=== PATIENT | female | born 1995 | race Caucasian/White ===

== ENCOUNTER 2016-10-18 20:46 | Inpatient (IN) | payer OTHER ==
[2016-10-18] MEDS ORDERED: HYDROmorphone 1 MG/ML 1 ML SYRINGE IVP STA (21:08)
--- NOTE | 2016-10-18 21:43 | US ---
EXAMINATION TYPE: US transvaginal DATE OF EXAM: 10/18/2016 9:29 PM COMPARISON: NONE CLINICAL HISTORY: Pain. Vomiting, constipation, bloating, right pelvic pain TECHNIQUE: Transvaginal (TV) Date of LMP: 09/28/16 EXAM MEASUREMENTS: Uterus: 6.9 x 3.3 x 4.3 cm Endometrial Stripe: 1.1 cm Right Ovary: 3.2 x 1.6 x 1.8 cm Left Ovary: 3.1 x 1.9 x 2.4 cm 1. Uterus: Anteverted appears wnl 2. Endometrium: wnl 3. Right Ovary: follicles noted 4. Left Ovary: follicles noted Spectral, color and waveform doppler imaging shows good arterial and venous flow within the ovaries ; there is no evidence for ovarian torsion. 5. Bilateral Adnexa: small amount of free fluid adjacent to bilateral ovaries 6. Posterior cul-de-sac: small amount of free fluid IMPRESSION: Ovarian torsion is not evident. Follow-up as indicated.
--- NOTE | 2016-10-18 21:53 | ED ---
Abdominal Pain HPI <Mahendra Mackenzie - Last Filed: 10/18/16 22:39> - General Source: patient, EMS, RN notes reviewed, old records reviewed Mode of arrival: EMS Limitations: no limitations <Rossy Shabazz - Last Filed: 10/19/16 04:33> - General Chief Complaint: Abdominal Pain Stated Complaint: Lower Abd Pain Time Seen by Provider: 10/18/16 20:55 - History of Present Illness Initial Comments: This is a 21-year-old female presenting to the emergency department from the [facility] for evaluation of right lower quadrant and flank pain. Patient presented to the [facility] in stable states she had this right lower quadrant tenderness with guarding and patient was thrashing around. Patient's labs were consistent with leukocytosis. She did receive a CAT scan there which is negative for appendicitis but did indicate a large to hepatic duct. Patient' s laboratory showed normal liver enzymes. Patient states that she still had pain after receiving multiple doses of morphine and Dilaudid and Toradol. Patient states that she's had these pains every once in a while but they've never been this bad. Patient initial emergency room physician did contacted the surgeon Dr. Negrete. He stated there is nothing surgically evident this point they want her to be transferred to [facility] for transvaginal ultrasound. Patient states that she did have some vaginal discharge. They did do swabs for gonorrhea and Chlamydia and patient had no cervical motion tenderness. Patient denies any fever or chills. She does state that she has vomited multiple times as well today. (Rossy Shabazz) - Related Data Home Medications Medication Instructions Recorded Confirmed No Known Home Medications [No 10/18/16 10/19/16 Known Home Medications] Allergies Allergy/AdvReac Type Severity Reaction Status Date / Time [facility]aclor [[facility] Allergy Anaphylaxis Verified 10/19/16 01:05 Review of Systems ROS Other: All systems not noted in ROS Statement are negative. <Mahendra Mackenzie - Last Filed: 10/18/16 22:39> ROS Other: All systems not noted in ROS Statement are negative. <Rossy Shabazz - Last Filed: 10/19/16 04:33> ROS Statement: Those systems with pertinent positive or pertinent negative responses have been documented in the HPI. Past Medical History Past Medical History: No Reported History History of Any Multi-Drug Resistant Organisms: None Reported Past Surgical History: No Surgical Hx Reported Past Psychological History: No Psychological Hx Reported Smoking Status: Current some day smoker Past Alcohol Use History: None Reported Past Drug Use History: None Reported - Past Family History Mother Family Medical History: No Reported History <Rossy Shabazz - Last Filed: 10/19/16 04:33> General Exam <Mahendra Mackenzie - Last Filed: 10/18/16 22:39> Limitations: no limitations General appearance: alert, in no apparent distress Head exam: Present: atraumatic, normocephalic, normal inspection Eye exam: Present: normal appearance, PERRL, EOMI. Absent: scleral icterus, conjunctival injection, periorbital swelling ENT exam: Present: normal exam, mucous membranes moist Neck exam: Present: normal inspection. Absent: tenderness, meningismus, lymphadenopathy Respiratory exam: Present: normal lung sounds bilaterally. Absent: respiratory distress, wheezes, rales, rhonchi, stridor Cardiovascular Exam: Present: regular rate, normal rhythm, normal heart sounds. Absent: systolic murmur, diastolic murmur, rubs, gallop, clicks GI/Abdominal exam: Present: soft, tenderness (Right lower quadrant tenderness and rigidity.), normal bowel sounds. Absent: distended, guarding, rebound, rigid External exam: Present: normal external exam Speculum exam: Present: normal speculum exam, vaginal discharge (slight vaginal discharge, cultures obtained. ). Absent: erythema, cervical discharge, vaginal bleeding, foreign body, tissue By manual exam: Present: normal by manual exam. Absent: cervical motion tenderness, adnexal tenderness Extremities exam: Present: normal inspection, full ROM, normal capillary refill. Absent: tenderness, pedal edema, joint swelling, calf tenderness Back exam: Present: normal inspection Neurological exam: Present: alert, oriented X3, CN II-XII intact Psychiatric exam: Present: normal affect, normal mood Skin exam: Present: warm, dry, intact, normal color. Absent: rash <Rossy Shabazz - Last Filed: 10/19/16 04:33> - General Exam Comments Initial Comments: Pleasant 21-year-old female, she is thrashing around in the bed. (Rossy Shabazz) Medical Decision Making <Mahendra Mackenzie - Last Filed: 10/18/16 22:39> - Radiology Data Radiology results: report reviewed <Rossy Shabazz - Last Filed: 10/19/16 04:33> - Medical Decision Making Medical decision-making. This is a 21-year-old female was sent to our emergency room from [facility] emergency room at that facility she had a CAT scan because of chronic recurrent lower abdominal pain. The CAT scan at that time was reported to us to showed no acute appendicitis. Dilaudid did indicate a possible enlarged hepatic duct both normal liver enzymes. The patient was still having pain at receiving pain medication she was sent here for evaluation by ultrasound rule out torsion of the ovary and this was reported to be negative by our radiologist. The patient reports she's had pain in the right lower quadrant for over a year on again off again. She's had vaginal examination without being positive for sexual transmitted diseases. Examination today in the emergency room finds the patient pushes hard enough to cause bruising over McBurney's point. The patient has discomfort with deep palpation to this area regardless whether she is relaxed laying flat or sitting up. Due to the mildly elevated white count of 14.5 and persistence of discomfort the patient be admitted for observation for the evening with surgical consultation by Dr. Qi gardner with whom I discussed the case. Dr. Mackenzie (Mahendra Mackenzie) Patient is a 21-year-old female transferred from [facility] for evaluation to rule out ovarian torsion. She has had right lower quadrant abdominal pain for the past is very severe. Patient's lab work was reviewed. Her urine analysis was negative for any acute process. Sodium is 134, potassium 4.0. Chloride 100. CO2 26. BUN 10 creatinine 0.7. Patient's AST is 25. ALT is 1235. Alk phos 74. Patient's white count was 14.86. 10.4 neutrophils. Hemoglobin 16.3. Patient was transferred here and did receive 2 of Dilaudid and morphine and 30 of Toradol and still has pain. Patient is transvaginal ultrasound was completed in the emergency department. It was negative for ovarian torsion. This case with Dr. Saha. Patient will be admitted at this time with consultation to Dr. Abelardo Mccray. Given patient's elevated white count and a felt necessary started around IV antibiotic. We started on Levaquin. Patient is agreeing with admission. (Rossy Shabazz) - Radiology Data Transvaginal ultrasound is negative for ovarian torsion. (Rossy Shabazz) Disposition <Mahendra Mackenzie - Last Filed: 10/18/16 22:39> Time of Disposition: 23:12 <Rossy Shabazz - Last Filed: 10/19/16 04:33> Clinical Impression: RLQ abdominal pain Disposition: ADMITTED IP TO THIS HOSP Condition: Good
[2016-10-18] MEDS ORDERED: NALOXONE 0.4 MG/ML 1 ML VIAL IV PRN (23:03)
[2016-10-18] MEDS ORDERED: ACETAMINOPHEN TAB 325 MG TAB PO PRN (23:03)
[2016-10-18] MEDS: SODIUM CHLORIDE 0.9% 1,000 ML IV SCH (23:40)
[2016-10-18] MEDS: LEVOFLOXACIN 750MG-D5W PMX 750 MG in DEXTROSE/WATER 1 150ML.BAG IVPB SCH (23:41)
[2016-10-19 01:04] VITALS: BMI 24.7
[2016-10-19] MEDS: HYDROmorphone 1 MG/ML 1 ML SYRINGE IV PRN ×7 (01:20→20:35)
[2016-10-19] MEDS: KETOROLAC 30 MG/ML 1 ML VIAL IVP PRN ×4 (01:21→20:36)
[2016-10-19 07:11] LABS: Basophils # (A) 0.1 k/uL (0-0.2); Basophils % (A) 1 %; CHCM 33.3; Eosinophils # (A) 0.1 k/uL (0-0.7); Eosinophils % (A) 2 %; HCT 40.7 % (34.0-46.0); HDW 2.18; HGB 13.7 gm/dL (11.4-16.0); Luc # (Auto) 0.14; Luc % (Auto) 2; Lymphocytes % (A) 24 %; MCH 32.5 pg (25.0-35.0); MCHC 33.7 g/dL (31.0-37.0); MCV 96.5 fL (80.0-100.0); Mean Platelet Volume 6.7; Monocytes # (A) 0.5 k/uL (0-1.0); Monocytes % (A) 6 %; Neutrophils # (A) 5.4 k/uL (1.3-7.7); Neutrophils % (A) 66 %; RBC 4.22 m/uL (3.80-5.40); RDW 12.9 % (11.5-15.5); WBC 8.1 k/uL (3.8-10.6); WBC (Perox) 8.38
[2016-10-19 07:33] LABS: ALT 23 U/L (9-52); AST 20 U/L (14-36); Alkaline Phosphatase 43 U/L (38-126); Anion Gap 5 mmol/L; Blood Urea Nitrogen 9 mg/dL (7-17); Carbon Dioxide 26 mmol/L (22-30); Chloride 106 mmol/L (98-107); Glucose 86 mg/dL (74-99); Non-African American GFR(MDRD) >60 (>60 ml/min/1.73 sqM); Potassium 4.6 mmol/L (3.5-5.1); Sodium 137 mmol/L (137-145); Total Bilirubin 1.1 mg/dL (0.2-1.3); Total Protein 5.9 g/dL (6.3-8.2)
[2016-10-19] MEDS: ONDANSETRON 4 MG/2 ML VIAL IVP PRN (08:22)
[2016-10-19] MEDS: SODIUM CHLORIDE 0.9% 1,000 ML IV SCH ×2 (09:22→17:04)
[2016-10-19] MEDS ORDERED: NICOTINE 14MG/24HR PATCH TRANSDERM STA (09:47)
[2016-10-19] MEDS: PANTOPRAZOLE 40 MG/10 ML VIAL IV SCH (10:12)
--- NOTE | 2016-10-19 12:10 | P.GSHP ---
History of Present Illness H&P Date: 10/19/16 patient is a 21-year-old white female who presented to an outside emergency room with a complaint of pain which became progressively worse in the right lower quadrant. The patient has had multiple episodes of abdominal pain of similar nature over the past several years. The pain appears to be associated with nausea and vomiting. The patient states that at this time she did have some fever and chills. the patient's last menstrual period was approximately 3 weeks ago.The patient underwent a CAT scan at [facility] which was reviewed with radiology department here. The appendix appears to be seen without any evidence of any inflammation. patient's white blood cell count was 8.1. There is some question as to some abnormality associated with the right ovary. She was transferred with request from the prior hospital for the patient to undergo transvaginal ultrasound. The patient did report some vaginal discharge. They did do swabs for gonorrhea and chlamydia and did not report any cervical motion tenderness. The patient states she is very uncomfortable at this time and is thrashing around on the bed. Additionally the patient states that in the past when she has had pain like this is difficult to walk and she states that it is more painful when she gets up and moves around. the patient is passing flatus and had a bowel movement yesterday. The patient is not hungry at this time and has not eaten since yesterday. The patient states that after examination at the outside facility she developed ecchymosis in the right lower quadrant. - Constitutional Comment: recurrent episodes of abdominal pain over the past several years Recurrent episodes of nausea - Cardiovascular Cardiovascular: Reports as per HPI - Gastrointestinal Gastrointestinal: Reports as per HPI - Genitourinary (Female) Comment: patient smokes a half a pack per day Genitourinary: Reports as per HPI - Genitourinary (Male) Genitourinary: Reports as per HPI - Integumentary Integumentary: Reports as per HPI Past Medical History Past Medical History: No Reported History History of Any Multi-Drug Resistant Organisms: None Reported Past Surgical History: No Surgical Hx Reported Past Anesthesia/Blood Transfusion Reactions: No Reported Reaction Past Psychological History: No Psychological Hx Reported Smoking Status: Current some day smoker Past Alcohol Use History: None Reported Past Drug Use History: None Reported - Past Family History Mother Family Medical History: No Reported History Medications and Allergies Home Medications Medication Instructions Recorded Confirmed Type No Known Home Medications [No 10/18/16 10/19/16 History Known Home Medications] Allergies Allergy/AdvReac Type Severity Reaction Status Date / Time cefaclor [From [facility]] Allergy Anaphylaxis Verified 10/19/16 01:05 Surgical - Exam Vital Signs Temp Pulse Resp BP Pulse Ox 99.0 F 80 16 98/62 99 10/18/16 20:54 10/18/16 20:54 10/18/16 20:54 10/18/16 20:54 10/18/16 20:54 - General well developed, moderate distress - Neck trachea midline, no venous distension - Respiratory normal expansion, normal respiratory effort, clear to auscultation - Cardiovascular Rhythm: regular Heart Sounds: normal: S1, S2 - Abdomen voluntary guarding, abdomen appears soft with patient is distracted echymosis over the right lower quadrant positive bowel sounds Results - Labs 10/19/16 06:41 10/19/16 06:41 Abnormal Lab Results - Last 24 Hours (Table) 10/19/16 Range/Units 06:41 Total Protein 5.9 L (6.3-8.2) g/dL Microbiology - Last 24 Hours (Table) 10/19/16 01:15 Genital Culture - Preliminary Vaginal Diabetes panel 10/19/16 Range/Units 06:41 Sodium 137 (137-145) mmol/L Potassium 4.6 (3.5-5.1) mmol/L Chloride 106 (98-107) mmol/L Carbon Dioxide 26 (22-30) mmol/L BUN 9 (7-17) mg/dL Creatinine 0.76 (0.52-1.04) mg/dL Glucose 86 (74-99) mg/dL Calcium 9.0 (8.4-10.2) mg/dL AST 20 (14-36) U/L ALT 23 (9-52) U/L Alkaline Phosphatase 43 (38-126) U/L Total Protein 5.9 L (6.3-8.2) g/dL Albumin 3.5 (3.5-5.0) g/dL Calcium panel 10/19/16 Range/Units 06:41 Calcium 9.0 (8.4-10.2) mg/dL Albumin 3.5 (3.5-5.0) g/dL Pituitary panel 10/19/16 Range/Units 06:41 Sodium 137 (137-145) mmol/L Potassium 4.6 (3.5-5.1) mmol/L Chloride 106 (98-107) mmol/L Carbon Dioxide 26 (22-30) mmol/L BUN 9 (7-17) mg/dL Creatinine 0.76 (0.52-1.04) mg/dL Glucose 86 (74-99) mg/dL Calcium 9.0 (8.4-10.2) mg/dL Adrenal panel 10/19/16 Range/Units 06:41 Sodium 137 (137-145) mmol/L Potassium 4.6 (3.5-5.1) mmol/L Chloride 106 (98-107) mmol/L Carbon Dioxide 26 (22-30) mmol/L BUN 9 (7-17) mg/dL Creatinine 0.76 (0.52-1.04) mg/dL Glucose 86 (74-99) mg/dL Calcium 9.0 (8.4-10.2) mg/dL Total Bilirubin 1.1 (0.2-1.3) mg/dL AST 20 (14-36) U/L ALT 23 (9-52) U/L Alkaline Phosphatase 43 (38-126) U/L Total Protein 5.9 L (6.3-8.2) g/dL Albumin 3.5 (3.5-5.0) g/dL - Imaging CT scan - pelvis: report reviewed, image reviewed US - abdomen: report reviewed, image reviewed (no evidence of appendicitis, no evidence of inflammation in the right lower quadrant, questionable changes in the right ovary, some intrahepatic ductal dilatation) Assessment and Plan Plan: impression/plan: 1. Recurrent chronic lower abdominal pain 2. Normal white blood cell count, CAT scan reviewed from [place] no evidence of acute inflammation in the right lower quadrant or appendicitis 3. [employer] consultation pending Plan: 1. I've discussed at length with the patient and her mother that this does not appear to be consistent with acute appendicitis. However if the pain persisted it may be necessary to do a laparoscopic evaluation. At this time he did not want that to be performed and we will await [employer] consultation.
--- NOTE | 2016-10-19 12:12 | P.PN ---
Progress Note - Text the patient underwent a transvaginal ultrasound which did not reveal any evidence of ovarian torsion.
--- NOTE | 2016-10-19 19:09 | P.OBCN ---
History of Present Illness Consult date: 10/19/16 Reason for consult: other (abdominal pain) Chief complaint: Abdominal pain History of present illness: [place] is a 21-year-old who reports having right abdominal pain that began about 3 days ago. The pain is progressed to the point where it is severe 8-10 out of 10 pain she finds it very difficult to find a position of comfort the pain is all in the right middle and lower quadrant there does not appear to be any pain in her pelvis. She reports a pelvic exam was done in the emergency room as well as a transvaginal ultrasound was done earlier today and neither of those resulted in any significant change in her pain and she tolerated them essentially well. She is asked that we not do a exam at this time as her abdomen is very sore. The pain is just inferior to her umbilicus and lateral to her umbilicus it is near where she has a very large bruise that is developed on her abdomen slightly lateral to it but she reports the bruise started yesterday after her exam in the emergency room in [place] and the pain started the day before. Ultrasound was performed transvaginally and did not find any significant pathology from a gynecologic standpoint. Uterus is normal size and anteverted, ovaries are normal size with follicles noted. No adnexal fluid is noted there is no evidence for torsion or other findings that would support a gynecologic source for this pain. This would be exceedingly atypical for endometriosis or PID and there is no evidence for torsion. While I cannot completely exclude gynecologic source for her pain with the fact that the pain is significantly higher than the pelvic brim and there was no pain on her pelvic exams done previously and she didn't tolerate her ultrasound that was done transvaginally well I believe the pain is not gynecologic in nature and would defer to your surgical management. Past Medical History Past Medical History: No Reported History History of Any Multi-Drug Resistant Organisms: None Reported Past Surgical History: No Surgical Hx Reported Past Anesthesia/Blood Transfusion Reactions: No Reported Reaction Past Psychological History: No Psychological Hx Reported Smoking Status: Current some day smoker Past Alcohol Use History: None Reported Past Drug Use History: None Reported - Past Family History Mother Family Medical History: No Reported History Medications and Allergies Home Medications Medication Instructions Recorded Confirmed Type No Known Home Medications [No 10/18/16 10/19/16 History Known Home Medications] Allergies Allergy/AdvReac Type Severity Reaction Status Date / Time cefaclor [From Ceclor] Allergy Anaphylaxis Verified 10/19/16 01:05 Exam Osteopathic Statement: *. No significant issues noted on an osteopathic structural exam other than those noted in the History and Physical/Consult. - Vital Signs Vital signs: Vital Signs Temp Pulse Pulse Resp BP BP Pulse Ox 10/19/16 15:00 98.4 F 80 22 120/63 99 10/19/16 07:00 98.3 F 66 20 110/63 99 10/19/16 00:55 97.8 F 72 18 102/49 97 10/18/16 23:38 97.8 F 71 18 95/56 96 Intake and Output 10/19/16 10/19/16 10/19/16 06:59 14:59 22:59 Output Total 150 400 Balance -150 -400 Output: Urine 150 400 Other: # Voids 1 Weight 61.235 kg - OBG Physical Exam Abdomen: diffuse tenderness, guarding noted (Large 6-8 cm bruise is noted on her anterior abdomen just to the right side of her umbilicus) Results Result Diagrams: 10/19/16 06:41 10/19/16 06:41 Abnormal Lab Results - Last 24 Hours (Table) 10/19/16 Range/Units 06:41 Total Protein 5.9 L (6.3-8.2) g/dL Microbiology - Last 24 Hours (Table) 10/19/16 01:15 Genital Culture - Preliminary Vaginal
[2016-10-19] MEDS: LEVOFLOXACIN 750MG-D5W PMX 750 MG in DEXTROSE/WATER 1 150ML.BAG IVPB SCH (20:37)
[2016-10-20] MEDS: ONDANSETRON 4 MG/2 ML VIAL IVP PRN ×2 (00:03→22:09)
[2016-10-20] MEDS: HYDROmorphone 1 MG/ML 1 ML SYRINGE IV PRN ×5 (00:03→22:09)
[2016-10-20] MEDS: SODIUM CHLORIDE 0.9% 1,000 ML IV SCH ×3 (00:15→17:10)
[2016-10-20] MEDS: KETOROLAC 30 MG/ML 1 ML VIAL IVP PRN ×2 (06:09→12:05)
[2016-10-20 06:59] LABS: Basophils % (A) 0 %; CH 31.9; CHCM 33.3; Eosinophils # (A) 0.1 k/uL (0-0.7); Eosinophils % (A) 2 %; HCT 41.8 % (34.0-46.0); HDW 2.27; HGB 14.3 gm/dL (11.4-16.0); Luc # (Auto) 0.11; Luc % (Auto) 2; Lymphocytes # (A) 1.9 k/uL (1.0-4.8); Lymphocytes % (A) 29 %; MCH 32.9 pg (25.0-35.0); MCHC 34.3 g/dL (31.0-37.0); Mean Platelet Volume 6.6; Monocytes # (A) 0.4 k/uL (0-1.0); Monocytes % (A) 6 %; Neutrophils # (A) 4.1 k/uL (1.3-7.7); Neutrophils % (A) 62 %; RBC 4.35 m/uL (3.80-5.40); RDW 12.7 % (11.5-15.5); WBC 6.6 k/uL (3.8-10.6); WBC (Perox) 6.68
--- NOTE | 2016-10-20 09:04 | P.CONS ---
History of Present Illness - Reason for Consult Consult date: 10/20/16 Abdominal pain Requesting physician: Adelia Dobbs - History of Present Illness 21-year-old female patient of Dr. Langston with a past medical history of anxiety and nicotine cigarette dependency, no surgical history, presents as a transfer from [facility] with intractable nausea vomiting and abdominal pain. Consultation has been requested by Gen. surgery for evaluation of abdominal pain. Patient states over the last several months she has had intermittent episodes of nausea followed by multiple nonbloody emesis with moderate to severe right mid quadrant/right upper quadrant pain. She is extremely anxious and crying during history taking this morning reporting severe abdominal pain. There is a 3-4 circular ecchymotic bruise area to the right mid quadrant which she states was most likely caused by the emergency room provider at [facility] pushing on her abdomen the other day. Abdominal pain intensified 2 days ago and evaluated at [facility]. Computed tomography scan abdomen and pelvis with IV and oral contrast reviewed this morning with Drs. Abelardo Mccray , Seth and Dr. Pompa radiologist no clear source to account for her presenting symptoms. Nausea vomiting abdominal pain seems to be centered around meals sometimes her symptoms exacerbate with the smell of food. Denies weight loss, ` fever, chills, hematemesis, hematochezia, melena, diarrhea, constipation, vaginal discharge or hematuria. No history of intravenous drug abuse or alcoholism. Sexually active does not use control. Denies trauma to the abdomen; no vigorous exercise or heavy lifting. No changes in her sexual partners. Evaluated by BARBER SHOP MANAGER last night transvaginal ultrasound did not report significant pathology from a BARBER SHOP MANAGER standpoint. No evidence for ovarian torsion or PID. Pain is felt not to be gynecologic in nature. Upon review of [place] medical records on transfer white count 14.8. Hemoglobin 16.3. Platelet 265. Sodium 134. Potassium 4.0. BUN 10. Creatinine 0.7. AST 25. ALT 35. Alkaline phosphatase 74. Total bilirubin 0.8. Serum negative. Urinalysis negative for ketones blood protein nitrite and leukocyte esterase. Patient is receiving IV Levaquin, repeat CBC yesterday upon transfer 8.1, 6.6 today. Hemoglobin 14.3. LFTs total bilirubin within normal limits. Rapid trichomonas negative. Review of Systems Constitutional: Denies fever, chills, sweats, weight gain, or loss. HEENT: Negative for migraines, blurred vision or loss, earaches, drainage, tinnitus, oral mucosal lesions, dysphagia, or odynophagia. CARDIAC: Negative for chest pain, arrhythmias, or palpitation. RESPIRATORY: Nicotine cigarette dependency. Negative for shortness of breath, hemoptysis, cough, or sputum production. GI: See HPI for pertinent findings. : Negative for hematuria, urgency, frequency, polyuria, or dysuria. GYNc: Denies possibility of . Negative vaginal discharge. MUSCULOSKELETAL: Negative for muscle aches, swelling, arthritis, and arthralgias. NEUROLOGIC: Negative for stroke or TIA. ENDOCRINE: Negative for thyroid problems. SKIN: Negative for rash or itching. PSYCHIATRIC: History of anxiety. All systems: negative (See HPI) Past Medical History Past Medical History: No Reported History History of Any Multi-Drug Resistant Organisms: None Reported Past Surgical History: No Surgical Hx Reported Past Anesthesia/Blood Transfusion Reactions: No Reported Reaction Past Psychological History: No Psychological Hx Reported Smoking Status: Current some day smoker Past Alcohol Use History: None Reported Past Drug Use History: None Reported - Past Family History Mother Family Medical History: No Reported History Medications and Allergies Home Medications Medication Instructions Recorded Confirmed Type No Known Home Medications [No 10/18/16 10/19/16 History Known Home Medications] Allergies Allergy/AdvReac Type Severity Reaction Status Date / Time cefaclor [From [facility]] Allergy Anaphylaxis Verified 10/19/16 01:05 Physical Exam Vitals: Vital Signs Temp Pulse Resp BP Pulse Ox 10/20/16 00:55 98.2 F 73 16 93/46 100 10/19/16 20:43 98.8 F 89 18 126/79 100 10/19/16 15:00 98.4 F 80 22 120/63 99 Intake and Output 10/19/16 10/20/16 10/20/16 22:59 06:59 14:59 Output Total 750 550 Balance -750 -550 Output: Urine 750 550 General appearance: The patient is alert, oriented, visibly anxious crying and upset. HET: Head is normocephalic and atraumatic. Pupils are equal and reactive. Oropharynx is clear without lesions. Neck: Supple without lymphadenopathy. Trachea midline. Heart: S1 S2. Regular rate and rhythm. Lungs: No crackles or wheezes are heard. Abdomen: Soft, tenderness to the right mid/right upper quadrant, nondistended with bowel sounds. With distraction no peritoneal signs just guarding or rebound. 3-4 cm ecchymosis to the right mid quadrant. No palpable organomegaly or masses. Extremities: Normal skin color and turgor. No cyanosis, rash, ulceration, clubbing, or edema. Radial and pedal pulses are 2/4 bilaterally. Neurological: No focal deficits. Strength and sensation are grossly intact. Results CBC & Chem 7: 10/20/16 06:32 10/19/16 06:41 Labs: Microbiology - Last 24 Hours (Table) 10/19/16 01:15 Genital Culture - Preliminary Vaginal CT scan - abdomen: image reviewed CT scan - pelvis: image reviewed (Reviewed with Seth Castellanos and Aletha) Assessment and Plan (1) Abdominal pain Narrative/Plan: 21-year-old female presents with intractable nausea vomiting and right mid quadrant/right upper quadrant abdominal pain intermittently for the last several months associated with meals exacerbated over the last few days. Presentation could be related to gallbladder pathology. Other differentials to consider is underlying nonbleeding peptic ulcer disease. Evaluated by gynecology presentation does not seem to be gynecologic in nature. Status: Acute Plan: 1. Case was discussed in detail with Drs. Abelardo Mccray and Seth. Surgery is planning on proceeding with a HIDA scan with CCK to evaluate biliary dyskinesia. 2. Will obtain amylase lipase to rule out pancreatitis. 3. If HIDA scan is negative and symptoms do not improve we'll consider proceeding with EGD evaluation for further investigation of her intractable nausea vomiting right mid quadrant/right upper quadrant abdominal pain. 4. Protonix 40 mg IV daily. Will follow closely with you. 5. BARBER SHOP MANAGER evaluation appreciated. Thank you for this kind referral and the opportunity to participate in the care of your patient. This consultation was discussed with Dr. Munguia. The impression and plan of care have been directed as dictated.
--- NOTE | 2016-10-20 09:04 | P.PN ---
Subjective Principal diagnosis: vomiting/abdominal pain the patient is a 21-year-old white female who presented to the emergency room with a complaint of vomiting, and abdominal pain which became progressively worse in the right side of the abdomen. The patient has had multiple similar episodes over the past several years. The patient had a CAT scan performed which does not reveal any inflammation or changes of concern of the appendix. The patient was seen by INSPECTOR TOOL who did not believe that this is ovarian in nature. The patient is very anxious and states that her pain continues to be persistent. The patient's white blood cell count is 6.6. The patient is not hungry at this time. The patient is passing flatus. Despite a negative computed tomography scan and normal white blood cell count the patient continues to complain of abdominal discomfort greatest on the right side. Her liver function studies are within normal limits. The patient's abdomen appears to be soft when she is distracted. However she is very anxious and does have some voluntary guarding. GI consultation was obtained. Objective - Vital Signs Vital signs: Vital Signs Temp 98.2 F 10/20/16 00:55 Pulse 73 10/20/16 00:55 Resp 16 10/20/16 00:55 BP 93/46 10/20/16 00:55 Pulse Ox 100 10/20/16 00:55 Intake & Output 10/19/16 10/20/16 10/20/16 18:59 06:59 18:59 Output Total 400 900 Balance -400 -900 Output: Urine 400 900 Other: # Voids 1 - Constitutional General appearance: Present: obese - Respiratory Respiratory: bilateral: CTA - Cardiovascular Rhythm: regular Heart sounds: normal: S1, S2 - Gastrointestinal Gastrointestinal Comment(s): voluntary guarding however when patient is distracted her abdomen is soft Increased tenderness right lower quadrant over area of an external bruise General gastrointestinal: Present: normal bowel sounds - Psychiatric Psychiatric Comment(s): very anxious and crying - Labs CBC & Chem 7: 10/20/16 06:32 10/19/16 06:41 Labs: Microbiology - Last 24 Hours (Table) 10/19/16 01:15 Genital Culture - Preliminary Vaginal Assessment and Plan Plan: impression/plan: 1. Recurrent chronic lower abdominal pain 2. Normal white blood cell count, CAT scan reviewed from [facility] no evidence of acute inflammation in the right lower quadrant or appendicitis 3. INSPECTOR TOOL consultation obtaining do not believe this is INSPECTOR TOOL in nature 4. GI consultation obtained Plan: 1. I've discussed at length with the patient and her mother that this does not appear to be consistent with acute appendicitis. after discussion with GI will obtain a lactic acid and a HIDA scan with an ejection fraction 2. The patient does not appear to have an acute surgical abdomen although she has persistent abdominal pain we will continue our workup 3. I will be out of town for the rest of the week Dr. Ann is covering he is aware of the case and has reviewed the computed tomography scan with us, as well as discussed the case with GI
[2016-10-20] MEDS: PANTOPRAZOLE 40 MG/10 ML VIAL IV SCH (09:26)
[2016-10-20 09:58] LABS: Chlamydia/GC Source Vaginal
[2016-10-20 13:26] LABS: Amylase 70 U/L (30-110)
--- NOTE | 2016-10-20 15:39 | NM ---
EXAMINATION TYPE: NM hepatobiliary w EF DATE OF EXAM: 10/20/2016 3:28 PM COMPARISON: NONE HISTORY: Abdominal pain TECHNIQUE: After the intravenous administration of 5.5 mCi Tc 99m Mebrofenin hepatobiliary scintigrap hy is performed. Immediate images post injection. FINDINGS: There is satisfactory initial accumulation of tracer by the liver. The gallbladder is visualized wit hin 120 minutes. The small bowel activity is noted within 38 minutes. At one hour 8 ounces of oral ensure plus is given to mimic CCK and gallbladder ejection fraction is calculated at 36 %. IMPRESSION: 1. Delayed filling of the gallbladder suggests cholecystitis. 2. Ejection fraction of 36%
[2016-10-20] MEDS: NICOTINE 21MG/24HR PATCH TRANSDERM SCH (17:07)
[2016-10-20] MEDS: LEVOFLOXACIN 750MG-D5W PMX 750 MG in DEXTROSE/WATER 1 150ML.BAG IVPB SCH (20:31)
[2016-10-21] MEDS: HYDROmorphone 1 MG/ML 1 ML SYRINGE IV PRN ×5 (02:26→16:08)
[2016-10-21] MEDS: SODIUM CHLORIDE 0.9% 1,000 ML IV SCH ×3 (04:43→22:36)
[2016-10-21] MEDS: PANTOPRAZOLE 40 MG/10 ML VIAL IV SCH (08:51)
--- NOTE | 2016-10-21 10:29 | P.PN ---
Subjective Principal diagnosis: Abdominal pain 21-year-old female with acute localized sharp right-sided abdominal pain with nausea vomiting intermittently the last several months. This morning patient now reporting left-sided discomfort. Afebrile. Unable to tolerate liquids without increased nausea. HIDA scan reported EF of 36%. Delayed filling of gallbladder suggests cholecystitis. General surgery following closely. Denies hematemesis, hematochezia, or melena. Afebrile. Objective - Vital Signs Vital signs: Vital Signs Temp 98.6 F 10/21/16 08:16 Pulse 84 10/21/16 09:34 Resp 20 10/21/16 08:16 BP 114/61 10/21/16 08:16 Pulse Ox 99 10/21/16 08:16 Intake & Output 10/20/16 10/21/16 10/21/16 18:59 06:59 18:59 Intake Total 1220 Output Total 550 Balance 1220 -550 Intake: Intake, IV Titration 980 Amount Levofloxacin 750Mg-D5w 980 Pmx 750 mg In Dextrose/ Water 1 150ml.bag @ 100 mls/hr IVPB HS REBECCA Rx#: [id number] Oral 240 Output: Urine 550 Other: Voiding Method Toilet # Voids 1 - Exam General appearance: The patient is alert, oriented, in no acute distress. HET: Head is normocephalic and atraumatic. Pupils are equal and reactive. Oropharynx is clear without lesions. Neck: Supple without lymphadenopathy. Trachea midline. Heart: S1 S2. Regular rate and rhythm. Lungs: No crackles or wheezes are heard. Abdomen: Soft, mild tenderness to the right mid right upper quadrant as well as to the left mid quadrant. Ecchymosis to right-sided abdomen appears to be healing more yellow and tone, nondistended with bowel sounds. No peritoneal signs. No palpable organomegaly or masses. Extremities: Normal skin color and turgor. No cyanosis, rash, ulceration, clubbing, or edema. Radial and pedal pulses are 2/4 bilaterally. Neurological: No focal deficits. Strength and sensation are grossly intact. - Labs CBC & Chem 7: 10/20/16 06:32 10/19/16 06:41 Assessment and Plan (1) Abdominal pain Narrative/Plan: 21-year-old female presents with intractable nausea vomiting and right mid quadrant/right upper quadrant abdominal pain intermittently for the last several months associated with meals exacerbated over the last few days. Presentation could be related to gallbladder pathology. Other differentials to consider is underlying nonbleeding peptic ulcer disease. Evaluated by gynecology presentation does not seem to be gynecologic in nature. Status: Acute Plan: 1. EGD evaluation tomorrow to rule out peptic ulcer disease. This was discussed with Dr. Ann; General surgeon and he is agreeable with plan of care. 2. Clear liquids as tolerated today. Continuous supportive measures. Nothing by mouth after midnight. IV Protonix 40 mg daily. We'll hold NSAIDs today. Further recommendations forthcoming. We'll continue to follow with you. The chief mechanical engineer has discussed the risks, benefits and alternative therapies for the above-mentioned procedure and for both sedation/analgesia as well as necessary blood product administration, if indicated, as they pertain to this patient. The patient has indicated understanding and acceptance of the risks and procedures discussed. Assessment and plan of care discussed with Dr. Munguia.
--- NOTE | 2016-10-21 13:25 | P.PN ---
Subjective Principal diagnosis: Lower abdominal pain patient's complaining of mild to moderate pain in the left lower quadrant as well. Polish been moving about and she was showering. There is no nausea no vomiting she's tolerating clear liquid diet she's passing flatus. She's had her HIDA scan is scheduled for an EGD tomorrow. Objective - Vital Signs Vital signs: Vital Signs Temp 98.6 F 10/21/16 08:16 Pulse 84 10/21/16 09:34 Resp 20 10/21/16 08:16 BP 114/61 10/21/16 08:16 Pulse Ox 99 10/21/16 08:16 Intake & Output 10/20/16 10/21/16 10/21/16 18:59 06:59 18:59 Intake Total 1220 Output Total 550 Balance 1220 -550 Intake: Intake, IV Titration 980 Amount Levofloxacin 750Mg-D5w 980 Pmx 750 mg In Dextrose/ Water 1 150ml.bag @ 100 mls/hr IVPB HS REBECCA Rx#: [id number] Oral 240 Output: Urine 550 Other: Voiding Method Toilet # Voids 1 - Constitutional General appearance: Present: cooperative, no acute distress - EENT Eyes: Present: EOMI - Gastrointestinal Gastrointestinal Comment(s): abdomen is soft mildly tender in the right and left lower quadrant. There is ecchymosis on the right side which is worse than the left. - Labs CBC & Chem 7: 10/20/16 06:32 10/19/16 06:41 Assessment and Plan (1) Abdominal pain Status: Acute Plan: the patient's pain is primarily in the lower quadrants in both sides. Centimeters right upper quadrant. She is intermittent bouts. At this time her clinical exam is equivocal extensive workup has not does not reveal any problems. I recommended advancing diet and discharge after the EGD.
[2016-10-21] MEDS: NICOTINE 21MG/24HR PATCH TRANSDERM SCH (16:08)
[2016-10-21] MEDS: ONDANSETRON 4 MG/2 ML VIAL IVP PRN (18:26)
[2016-10-21] MEDS: Acetaminophen-Codeine 300-30mg TAB PO PRN ×2 (18:34→22:37)
[2016-10-21] MEDS: LEVOFLOXACIN 750MG-D5W PMX 750 MG in DEXTROSE/WATER 1 150ML.BAG IVPB SCH (20:36)
[2016-10-21] MEDS: LORazepam 2 MG/ML SYRINGE IV PRN (20:42)
[2016-10-22] MEDS: Acetaminophen-Codeine 300-30mg TAB PO PRN ×2 (05:03→12:40)
[2016-10-22] MEDS ORDERED: HYDROmorphone 1 MG/ML 1 ML SYRINGE IVP STA (05:35)
[2016-10-22] MEDS: SODIUM CHLORIDE 0.9% 1,000 ML IV SCH (06:37)
[2016-10-22] MEDS: LORazepam 2 MG/ML SYRINGE IV PRN (09:21)
[2016-10-22] MEDS: PANTOPRAZOLE 40 MG/10 ML VIAL IV SCH (09:21)
[2016-10-22] MEDS ORDERED: IV FLUID CONTINUATION 1,000 ML IV ONE (11:46)
[2016-10-22] MEDS ORDERED: PROPOFOL 10 MG/ML 20 ML VIAL IV ONE (11:49)
[2016-10-22] MEDS ORDERED: fentaNYL (PF) 50 MCG/ML 2 ML AMP ONE (11:49)
[2016-10-22] MEDS ORDERED: MIDAZOLAM 2 MG/2 ML VIAL ONE (11:49)
--- NOTE | 2016-10-22 12:06 | P.PN ---
Subjective Principal diagnosis: Lower abdominal pain patient's complaining of moderate pain in both the lower quadrant as well. HIDA scan was equivocal. She's had detailed evaluation. Await EGD. S Objective - Vital Signs Vital signs: Vital Signs Temp 98.5 F 10/22/16 10:59 Pulse 72 10/22/16 10:59 Resp 20 10/22/16 10:59 BP 109/68 10/22/16 10:59 Pulse Ox 100 10/22/16 10:59 Intake & Output 10/21/16 10/22/16 10/22/16 18:59 06:59 18:59 Intake Total 240 120 50 Output Total 1100 500 Balance -860 -380 50 Intake: IV 50 Oral 240 120 Output: Urine 1100 500 Other: Voiding Method Toilet Toilet # Voids 1 # Emeses 2 - EENT Eyes: Present: PERRLA - Gastrointestinal Gastrointestinal Comment(s): I'll return in the lower quadrants without any guarding or rebound ecchymosis is resolving General gastrointestinal: Present: soft - Labs CBC & Chem 7: 10/20/16 06:32 10/19/16 06:41 Assessment and Plan (1) Abdominal pain Status: Acute Plan: Patient has not has been abdominal pain which is nonsurgical at present. Await for EGD. She may be discharged later today or first thing tomorrow.
--- NOTE | 2016-10-22 12:09 | P.DS ---
Providers Date of admission: 10/20/16 10:58 Expected date of discharge: 10/22/16 Attending physician: Adelia Dobbs Consults: dr Munguia Primary care physician: Laci Langston - Discharge Diagnosis(es) (1) Abdominal pain Current Visit: Yes Status: Acute Hospital Course: Patient [id number] female presented with right lower quadrant pain in spite of sequential abdominal exams as well as multiple studies which remained clear with the pains coming from but there is no sign of any acute surgical abdomen. She does have gastritis on EGD. She'll be treated for gastritis. She is to be discharged home to follow up with her primary care doctor for further evaluation and management. She'll be discharged on regular diet Procedures: EGD with biopsy Patient Condition at Discharge: Good Plan - Discharge Summary New Discharge Prescriptions: Dicyclomine [Bentyl] 10 mg PO TID #21 capsule oxyCODONE HCL/ACETAMINOPHEN [Percocet 5-325 mg] 1 tab PO Q6HR PRN #6 tab PRN Reason: Severe Pain Discharge Medication List Dicyclomine [Bentyl] 10 mg PO TID #21 capsule 10/22/16 [Rx] oxyCODONE HCL/ACETAMINOPHEN [Percocet 5-325 mg] 1 tab PO Q6HR PRN #6 tab [Rx] Follow up Appointment(s)/Referral(s): Laci Langston MD [Primary Care Provider] - 1-2 days Activity/Diet/Wound Care/Special Instructions: Regular diet Discharge Disposition: HOME SELF-CARE
--- NOTE | 2016-10-22 12:10 | P.PCN ---
Date of Procedure: 10/22/16 Procedure(s) Performed: Procedure: Esophagogastroduodenoscopy and biopsy. Preoperative diagnosis: Abdominal pain and intractable nausea and vomiting. Postoperative diagnosis: Mild gastritis and duodenitis but no ulcers, esophagitis or gastric outlet obstruction. Preparation and sedation: Was provided by anesthesia. Brief clinical history: The patient is a 21-year-old female who was initially transferred from [facility] where she presented with right-sided abdominal pain and leukocytosis. Initially, the question was to rule out appendicitis and subsequently she was transferred to this hospital for transvaginal ultrasound to rule out gynecological causes of her pain. She was seen by RELEASE AND TECHNICAL RECORDS CLERK and transvaginal ultrasound was not revealing of any significant pathology. The patient continued to have the right-sided pain at times in the upper quadrants including nausea vomiting anytime she attempts to eat. General surgery evaluated her for possible gallbladder disease. She had an ultrasound and HIDA scan. We were asked to see her for this problem as well. This evaluation is to assess for peptic ulcer disease or other pathology. The details are summarized in the history and physical and dictated consultations and progress note. Procedure: With the patient on her left lateral decubitus position and after informed consent and adequate sedation, I passed the Olympus-GIF 160 video upper endoscope through the cricopharyngeus down the esophagus. Esophagus appeared healthy with no erosions, ulcers, mucosal tears, varices or Velasquez's esophagus. There was no definite hiatal hernia. GE junction was around 39-40 cm from the incisors. The endoscope was then passed into the stomach which was insufflated with air and inspected in detail including the retroflex view in the cardia. There was mottling and erythema in the antrum and occasional fading very small erosion but no ulcers. Pyloric channel showed no ulcers. Duodenal bulb, post bulbar area and descending duodenum showed minimal erythema and edema. I obtained biopsies from the duodenum, antrum and esophagus then the endoscope was withdrawn. The patient tolerated the procedure well. Plan: The patient was reassured. Will await biopsy results and make further plans based on her course and biopsy results.
[2016-10-22 12:47] VITALS: RESP 16; TEMP 98.1
[2016-10-22 13:28] VITALS: PULSE 82
[2016-10-22 13:30] VITALS: BP 113/51
== END 2016-10-22 16:23 | disposition home or self-care (01) | DRG 392 ==
LOC: EC 20:46 → 6PED 22:42 → OBSVTOIN 10-20 10:58
PROVIDERS: ADMIT Surgery; ATTEND Surgery
PROC: 0DB98ZX Excision of Duodenum, Via Natural or Artificial Opening Endoscopic, Diagnostic (ICD-10-PCS; 2016-10-22)
PROC: 0DB78ZX Excision of Stomach, Pylorus, Via Natural or Artificial Opening Endoscopic, Diagnostic (ICD-10-PCS; 2016-10-22)
PROC: 0DB58ZX Excision of Esophagus, Via Natural or Artificial Opening Endoscopic, Diagnostic (ICD-10-PCS; principal; 2016-10-22 12:50)
DX: K29.70 Gastritis, unspecified, without bleeding (principal); D72.829 Elevated white blood cell count, unspecified; F41.9 Anxiety disorder, unspecified; S30.1XXA Contusion of abdominal wall, initial encounter; K29.80 Duodenitis without bleeding; R50.9 Fever, unspecified; N89.8 Other specified noninflammatory disorders of vagina; R11.2 Nausea with vomiting, unspecified; N85.4 Malposition of uterus; G89.29 Other chronic pain; R10.11 Right upper quadrant pain; R93.2 Abnormal findings on diagnostic imaging of liver and biliary tract; F17.210 Nicotine dependence, cigarettes, uncomplicated; Z88.1 Allergy status to other antibiotic agents
CPT/HCPCS: 43239; 76830; 78226; 80053; 81025; 82150; 83605; 83690; 85025; 87070; 87205; 87491; 87591; 87808; 88305; 88342; 93005; 93975; 96361; 96374; 96375; 96376; 99285

== ENCOUNTER → 2018-05-31 | Outpatient (CLI) | payer OTHER ==
[2018-05-31 13:30] LABS: HGB 10.9 gm/dL (11.4-16.0); MCH 32.5 pg (25.0-35.0); MCHC 34.1 g/dL (31.0-37.0); MCV 95.3 fL (80.0-100.0); Mean Platelet Volume 7.3; Platelet Count 203 k/uL (150-450); RBC 3.36 m/uL (3.80-5.40); RDW 12.9 % (11.5-15.5)
== END ==
LOC: LABWHC1 11:55
PROVIDERS: ATTEND Obstetrics & Gynecology
DX: O26.812 Pregnancy related exhaustion and fatigue, second trimester (principal); Z3A.00 Weeks of gestation of pregnancy not specified
CPT/HCPCS: 36415; 82950; 85027

== ENCOUNTER 2018-08-12 06:00 | Inpatient (IN) | payer OTHER ==
--- NOTE | 2018-08-11 18:22 | P.HPOB ---
History of Present Illness H&P Date: 08/11/18 Chief Complaint: Induction of labor This is a 23-year-old female 1 para 0 with an estimated date of confinement of 08/04/2018, estimated gestational age of 41 weeks, who presents to labor and delivery for induction of labor. She admits to good movement. She denies any rupture of membranes. course was essentially uncomplicated however she did have a large gap in her care from March through June. At that time drug screen was performed and it was positive for marijuana. She states she doesn't use it but is around a lot of people who smoke marijuana. She is advised that she will need a social service consult after delivery. labs: Hepatitis B surface antigen-negative RPR-nonreactive Rubella-immune Blood type-O+ Antibody screen-negative Hemoglobin-13.9 Toxoplasma-negative Random glucose-82 Quad screen-negative Obstetrical ultrasound-normal anatomy One hour Glucola-126 Urine drug screen-positive for marijuana GC chlamydia-negative Trichomonas-negative Pap smear-within normal limits Group B streptococcus-negative Obstetrical history: Gynecologic history: No history of sexual transmitted diseases. Social history: She is single. She is unemployed. Review of Systems Constitutional: Denies chills, Denies fever Eyes: denies blurred vision, denies pain Ears, nose, mouth and throat: Denies headache, Denies sore throat Cardiovascular: Denies chest pain, Denies shortness of breath Respiratory: Denies cough Gastrointestinal: Reports abdominal pain (Irregular contractions) Genitourinary: Reports pelvic pain Musculoskeletal: Reports low back pain Integumentary: Denies pruritus, Denies rash Neurological: Denies numbness, Denies weakness Psychiatric: Denies anxiety, Denies depression Past Medical History Past Medical History: No Reported History History of Any Multi-Drug Resistant Organisms: None Reported Past Surgical History: No Surgical Hx Reported Past Anesthesia/Blood Transfusion Reactions: No Reported Reaction Past Psychological History: No Psychological Hx Reported Smoking Status: Current some day smoker Past Alcohol Use History: None Reported Past Drug Use History: None Reported - Past Family History Mother Family Medical History: No Reported History Medications and Allergies Home Medications Medication Instructions Recorded Confirmed Type Pnv,Calcium 72/Iron/Folic Acid 08/11/18 History [ Plus Tablet] Allergies Allergy/AdvReac Type Severity Reaction Status Date / Time cefaclor [From [facility]] Allergy Anaphylaxis Verified 10/19/16 01:05 Exam Osteopathic Statement: *. No significant issues noted on an osteopathic structural exam other than those noted in the History and Physical/Consult. HEENT: Within normal limits Heart: Regular rate and rhythm Lungs: Clear to auscultation bilaterally Abdomen: Cervix: 1 cm/70%/-1 station heart tones: 140s by Doppler Extremities: Negative Homans Assessment and Plan (1) 41 weeks gestation of Status: Acute Code(s): Z3A.41 - 41 WEEKS GESTATION OF SNOMED Code( s): 62690373 Plan: Proceed with oxytocin induction of labor. Epidural anesthesia if desired. Expectant management.
[2018-08-12] MEDS ORDERED: TERBUTALINE 1 MG/ML VIAL SQ PRN (06:29)
[2018-08-12] MEDS ORDERED: OXYTOCIN 10 UNIT/ML 1 ML VIAL IM PRN (06:29)
[2018-08-12] MEDS ORDERED: LIDOCAINE 1% 20 ML VIAL (10MG/ML) FOR IV START INTRADERMA PRN (06:29)
[2018-08-12] MEDS ORDERED: LIDOCAINE 0.5% (PF) 5 MG/ML (50 ML SDV) SQ PRN (06:29)
[2018-08-12] MEDS ORDERED: OXYTOCIN 30 UNITS/500 ML NS 30 UNIT in SALINE 1 500ML.BAG IV SCH (06:29)
[2018-08-12] MEDS ORDERED: METHYLERGONOVINE 0.2 MG/ML 1 ML AMP IM PRN (06:29)
[2018-08-12] MEDS ORDERED: CARBOPROST TROMETHAMINE 250 MCG/ML 1 ML AMP IM PRN (06:29)
[2018-08-12 06:35] VITALS: BMI 34.9
[2018-08-12] MEDS: LACTATED RINGERS 1,000 ML IV SCH ×3 (06:53→17:23)
[2018-08-12 07:04] LABS: Basophils % (A) 0 %; Eosinophils # (A) 0.2 k/uL (0-0.7); Eosinophils % (A) 1 %; HCT 35.4 % (34.0-46.0); HGB 12.2 gm/dL (11.4-16.0); Lymphocytes # (A) 2.4 k/uL (1.0-4.8); Lymphocytes % (A) 19 %; MCH 32.1 pg (25.0-35.0); MCHC 34.4 g/dL (31.0-37.0); MCV 93.5 fL (80.0-100.0); Mean Platelet Volume 7.8; Monocytes # (A) 0.6 k/uL (0-1.0); Monocytes % (A) 5 %; Neutrophils # (A) 9.2 k/uL (1.3-7.7); Neutrophils % (A) 74 %; Platelet Count 204 k/uL (150-450); RBC 3.79 m/uL (3.80-5.40); WBC 12.6 k/uL (3.8-10.6)
[2018-08-12] MEDS: BUTORPHANOL 1 MG/ML 1 ML VIAL IV PRN ×2 (13:10→15:03)
[2018-08-12] MEDS ORDERED: SODIUM CHLORIDE 0.9% 100 ML BAG ONE (16:56)
[2018-08-12] MEDS ORDERED: fentaNYL (PF) 50 MCG/ML 5 ML AMP ONE (16:56)
[2018-08-12] MEDS ORDERED: ROPIVACAINE 5MG/ML 20ML VIAL ONE (16:56)
[2018-08-12] MEDS ORDERED: CITRIC ACID-SODIUM CITRATE 15 ML CUP PO ONE (22:15)
[2018-08-12] MEDS ORDERED: ceFAZolin IN SWFI 2 GM/20 ML SYRINGE IVP STA (22:15)
[2018-08-12] MEDS ORDERED: CLINDAMYCIN 900 MG in DEXTROSE 5% IN WATER 50 ML IVPB STA ×2 (22:34)
[2018-08-12] MEDS ORDERED: MORPHINE SULFATE (PF) 0.3 MG/0.3 ML SYR ONE (23:15)
[2018-08-12] MEDS ORDERED: KETOROLAC 30 MG/ML 1 ML VIAL ONE (23:15)
[2018-08-12] MEDS ORDERED: OXYTOCIN 10 UNIT/ML 1 ML VIAL ONE (23:15)
[2018-08-12] MEDS ORDERED: ONDANSETRON 4 MG/2 ML VIAL ONE (23:15)
[2018-08-12] MEDS ORDERED: KETAMINE 10 MG/ML 20 ML VIAL ONE (23:15)
[2018-08-12] MEDS ORDERED: MIDAZOLAM 2 MG/2 ML VIAL ONE (23:15)
[2018-08-12] MEDS ORDERED: fentaNYL (PF) 50 MCG/ML 2 ML AMP ONE (23:15)
[2018-08-12] MEDS ORDERED: ONDANSETRON 4 MG/2 ML VIAL IVP PRN (23:45)
[2018-08-12] MEDS ORDERED: NALOXONE 0.4 MG/ML 1 ML VIAL IV PRN (23:45)
[2018-08-12] MEDS ORDERED: NALBUPHINE 10 MG/ML (1 ML AMP) IV PRN (23:45)
[2018-08-12] MEDS ORDERED: HYDROmorphone 0.5 MG/0.5 ML SYRINGE IVP PRN (23:45)
[2018-08-12] MEDS ORDERED: diphenhydrAMINE 50 MG/ML 1 ML VIAL IVP PRN (23:45)
--- NOTE | 2018-08-13 00:05 | P.OP ---
Date of Procedure: 08/12/18 Preoperative Diagnosis: 1. Intrauterine at 41 and one sevenths weeks. 2. Failure to progress. Postoperative Diagnosis: Same Procedure(s) Performed: Primary low transverse section Anesthesia: epidural (With Duramorph) Surgeon: Adeline Ferrari Nut Process Helper #1: Rosette Lisa Estimated Blood Loss (ml): 600 Pathology: other (Placenta) Condition: stable Disposition: floor Indications for Procedure: This is a 23-year-old female 1 para 0 at 41 and one sevenths weeks who presented for induction of labor secondary to postdates. She underwent oxytocin induction of labor and progressed to a maximum a 4 cm and then made no further change after at least 4 hours with good contractions. She did receive an epidural at approximately 2-1/2-3 cm and only progressed to 4 cm after the epidural. At this point she requested section. I have discussed the risks, benefits, and alternative therapies for the above- mentioned procedure and for both sedation/anesthesia as well as necessary blood products administration, if indicated, as they pertain to this patient. The patient has indicated her understanding and acceptance of the risks and procedures discussed. Operative Findings: A viable male infant is noted in the vertex presentation with scores of 9 at 1 minute and 9 at 5 minutes and infant weight of 7 lbs. 4 oz. Nuchal cord 2 was noted. Normal uterus tubes and ovaries are noted. Description of Procedure: The patient is taken to the operating room where she is placed in the dorsal supine position with leftward tilt after epidural anesthesia is bolused. She is prepped and draped in the normal sterile fashion. Skin was tested and found to be adequately anesthetized. A Pfannenstiel skin incision was made with a scalpel. A second knife was used to carry the incision down to the underlying layer of fascia. The fascia was nicked in the midline with a scalpel and then extended laterally bilaterally with Huizar scissors. The anterior lip of the fascia was grasped with 2 Gia clamps and then dissected off the underlying rectus muscle in the midline with Huizar scissors. The inferior aspect of the fascial incision was grasped with 2 Gia clamps and dissected off the underlying rectus muscle and the midline with Huizar scissors. Next the peritoneum layer was tented up with 2 hemostats and then entered sharply with the scalpel. The incision is extended superiorly and inferiorly with Metzenbaum scissors. Next a DeLee retractor is placed. The vesicouterine peritoneum is entered sharply with Metzenbaum scissors and extended laterally bilaterally with Metzenbaum scissors and then the bladder flap is pushed inferiorly. The lower uterine segment is incised in transverse fashion with the scalpel and then bluntly entered with a hemostat. Clear fluid is noted. The incision was then extended laterally bilaterally with 2 fingers. Next the 's head is delivered through the incision. Nose and mouth are bulb suctioned. Nuchal cord 2 was reduced around the 's head. The remainder of the is easily delivered and placed on mother's abdomen. Cord is clamped and cut. is taken to warmer by nursing staff. Cord blood is obtained secondary to O+ blood type. At this point the patient was feeling a significant amount of discomfort and therefore anesthesia did give her some extra pain medication through her IV. Uterine fundus is gently massaged and placenta is delivered manually. Uterus is exteriorized and cleared of all clots and debris. Uterine incision is closed with 0 Vicryl suture in a running locked fashion. A second layer of 0 Vicryl suture is used in a running fashion for hemostasis. Once adequate hemostasis as assured, the vesicouterine peritoneum is reapproximated with 2-0 Vicryl suture in a running fashion. Posterior cul-de-sac is suctioned of all clots and debris. Uterus is returned to the abdomen. Incision is noted to be hemostatic. Peritoneal layer is closed with 0 Vicryl suture in a running fashion. Muscle layer is reapproximated with 0 Vicryl suture in interrupted fashion. Fascia layer is then closed with 0 PDS suture with 2 sutures meeting in the midline and the knots buried in either side and in the midline. The subcutaneous tissue was then closed with 2-0 Vicryl suture. Skin layer was then closed with abel. All sponge and needle counts are correct. The patient is taken to recovery room in stable condition.
[2018-08-13] MEDS: HYDROmorphone 1 MG/ML 1 ML SYRINGE IVP PRN ×3 (00:40→08:02)
[2018-08-13] MEDS ORDERED: ONDANSETRON 4 MG/2 ML VIAL IVP PRN (02:50)
[2018-08-13] MEDS ORDERED: ACETAMINOPHEN TAB 325 MG TAB PO PRN (02:50)
[2018-08-13] MEDS ORDERED: HYDROmorphone PCA 5 MG/25 ML SYRINGE IV PRN (02:50)
[2018-08-13] MEDS ORDERED: LANOLIN CREAM 5 GM TUBE TOPICAL PRN (02:50)
[2018-08-13] MEDS ORDERED: diphenhydrAMINE 50 MG CAP PO PRN (02:50)
[2018-08-13] MEDS ORDERED: ZOLPIDEM 5 MG TAB PO PRN (02:50)
[2018-08-13] MEDS ORDERED: METOCLOPRAMIDE 5 MG/ML 2 ML VIAL IVP PRN (02:50)
[2018-08-13] MEDS ORDERED: OXYTOCIN 20 UNITS/1000 ML NS 1,000 ML IV SCH (02:50)
[2018-08-13] MEDS ORDERED: diphenhydrAMINE 50 MG/ML 1 ML VIAL IVP PRN ×2 (02:50)
[2018-08-13] MEDS ORDERED: NALOXONE 0.4 MG/ML 1 ML VIAL IV PRN (02:50)
[2018-08-13] MEDS ORDERED: SIMETHICONE 80 MG CHEWABLE PO PRN (02:50)
[2018-08-13] MEDS ORDERED: diphenhydrAMINE 25 MG CAP PO PRN (02:50)
[2018-08-13] MEDS: KETOROLAC 30 MG/ML 1 ML VIAL IVP PRN ×3 (05:49→19:34)
[2018-08-13] MEDS: LACTATED RINGERS 1,000 ML IV SCH (06:52)
[2018-08-13 06:55] LABS: Basophils % (A) 0 %; Eosinophils # (A) 0.1 k/uL (0-0.7); Eosinophils % (A) 0 %; HCT 33.2 % (34.0-46.0); Lymphocytes # (A) 1.1 k/uL (1.0-4.8); Lymphocytes % (A) 6 %; MCH 31.2 pg (25.0-35.0); MCHC 33.1 g/dL (31.0-37.0); MCV 94.2 fL (80.0-100.0); Mean Platelet Volume 7.9; Monocytes # (A) 0.8 k/uL (0-1.0); Monocytes % (A) 4 %; Neutrophils # (A) 16.5 k/uL (1.3-7.7); Neutrophils % (A) 89 %; Platelet Count 162 k/uL (150-450); RBC 3.53 m/uL (3.80-5.40); WBC 18.6 k/uL (3.8-10.6)
[2018-08-13] MEDS: SENNOSIDES-DOCUSATE SODIUM 1 EACH TAB PO SCH ×3 (08:09→19:40)
--- NOTE | 2018-08-13 09:03 | P.PN ---
Progress Note - Text Progress Note Date: 08/13/18 23-year-old female status post section with a continuous labor epidural. Following the 2 mg morphine injected into epidural catheter. Patient doing well VAS 4 out of 10 in severity. Taking Dilaudid when necessary as well. No complaints of pruritus, no motor or/sensory deficits. Patient has not been ambulating yet and will today.
--- NOTE | 2018-08-13 12:28 | P.PNOBGPC ---
Subjective - Subjective Principal diagnosis: Status post primary section postoperative day #1 Interval history: Patient is doing okay. She is passing flatus. Her pain has been fairly well- controlled with Duramorph and Dilaudid for breakthrough pain. She has not ambulated yet. Bleeding has slowed. She is bottle feeding. Patient reports: Reports appetite normal, Reports pain well controlled : doing well, bottle feeding Objective - Vital Signs Latest vital signs: Vital Signs Temp Pulse Resp BP Pulse Ox 08/13/18 12:00 16 08/13/18 09:57 16 08/13/18 07:44 100 08/13/18 07:43 98.0 F 74 16 136/77 08/13/18 07:28 16 08/13/18 06:00 99.7 F H 87 16 130/50 97 08/13/18 05:51 16 97 08/13/18 04:45 97 08/13/18 03:43 16 97 08/13/18 02:45 17 97 08/13/18 02:10 97.6 F 77 17 129/64 97 08/13/18 01:40 97.4 F L 80 18 118/60 95 08/13/18 01:10 90 16 119/63 96 08/13/18 00:55 91 18 128/76 96 08/13/18 00:45 18 96 08/13/18 00:40 98.3 F 88 18 119/71 96 08/13/18 00:24 91 18 119/76 97 08/13/18 00:10 98.8 F 98 18 150/71 99 Intake and Output 08/12/18 08/13/18 08/13/18 22:59 06:59 14:59 Intake Total 2000 800 Output Total 100 125 Balance 1900 675 Intake: Intake, IV Titration 2000 800 Amount Lactated Ringers 1,000 ml 2000 @ 125 mls/hr IV .Q8H REBECCA Rx#:[id number] Oxytocin 20 Units/1000 ml 800 Ns 1,000 ml @ Per Protocol IV .Q0M REBECCA Rx#: [id number] Output: Urine 100 125 Other: Voiding Method Indwelling Catheter # Voids 3 - Exam Extremities: Present: normal. Absent: tenderness, edema Abdomen: Present: normal appearance, soft (Positive bowel sounds 4 ). Absent: distention, tenderness Incision: Present: normal, dry, intact. Absent: erythematous Uterus: Present: normal, firm. Absent: tenderness - Labs Labs: Abnormal Lab Results - Last 24 Hours (Table) 08/13/18 Range/Units 06:30 WBC 18.6 H (3.8-10.6) k/uL RBC 3.53 L (3.80-5.40) m/uL Hgb 11.0 L (11.4-16.0) gm/dL Hct 33.2 L (34.0-46.0) % Neutrophils # 16.5 H (1.3-7.7) k/uL Assessment and Plan Assessment: Status post primary section postoperative day #1 (1) 41 weeks gestation of Current Visit: No Status: Acute Code(s): Z3A.41 - 41 WEEKS GESTATION OF SNOMED Code(s): 75324327 Plan: Advise will switch to oral pain medications today. She may shower. Encouraged ambulation. Will remove May catheter shortly.
[2018-08-13] MEDS: HYDROcodone/APAP 5-325MG 1 EACH TAB PO PRN ×2 (16:29→22:38)
[2018-08-14] MEDS: IBUPROFEN 600 MG TAB PO PRN ×4 (01:34→20:31)
[2018-08-14] MEDS: HYDROcodone/APAP 5-325MG 1 EACH TAB PO PRN ×3 (04:30→15:10)
[2018-08-14] MEDS: SENNOSIDES-DOCUSATE SODIUM 1 EACH TAB PO SCH ×2 (07:35→20:32)
[2018-08-14 07:52] LABS: Basophils % (A) 0 %; Eosinophils # (A) 0.2 k/uL (0-0.7); Eosinophils % (A) 1 %; HCT 31.2 % (34.0-46.0); HGB 10.4 gm/dL (11.4-16.0); Lymphocytes # (A) 1.7 k/uL (1.0-4.8); Lymphocytes % (A) 10 %; MCH 31.7 pg (25.0-35.0); MCHC 33.4 g/dL (31.0-37.0); MCV 94.8 fL (80.0-100.0); Mean Platelet Volume 8.5; Monocytes # (A) 0.6 k/uL (0-1.0); Monocytes % (A) 4 %; Neutrophils # (A) 14.7 k/uL (1.3-7.7); Neutrophils % (A) 85 %; Platelet Count 194 k/uL (150-450); RBC 3.29 m/uL (3.80-5.40); RDW 14.1 % (11.5-15.5); WBC 17.4 k/uL (3.8-10.6)
[2018-08-14] MEDS ORDERED: INFLUENZA VACCINE (6 MOS+) 60 MCG/0.5 ML SYRINGE IM ONE (09:48)
[2018-08-14] MEDS ORDERED: DIPH,PERTUS(ACELL)TETVAC-LF 0.5 ML VIAL IM ONE (09:49)
--- NOTE | 2018-08-14 10:53 | P.PNOBGPC ---
Subjective - Subjective Principal diagnosis: Status post primary section postoperative day #2 Interval history: Patient is doing a little better today with pain control. She is alternating between ibuprofen and [place]. She has noted some increased vaginal bleeding with some clots. She denies any dizziness or lightheadedness. She is passing flatus and bowel movement. Baby is in level I nursery on observation. She is bottle feeding. Patient reports: Reports appetite normal, Reports voiding normally, Reports pain well controlled, Reports ambulating normally : other (In level I nursery), bottle feeding Objective - Vital Signs Latest vital signs: Vital Signs Temp Pulse Resp BP Pulse Ox 08/14/18 07:36 98.6 F 80 16 122/69 08/13/18 23:48 98.6 F 90 18 142/86 100 08/13/18 20:00 98.5 F 82 17 125/65 98 08/13/18 16:00 99.3 F 83 16 134/60 08/13/18 12:00 98.3 F 80 16 132/79 Intake and Output 08/13/18 08/14/18 08/14/18 22:59 06:59 14:59 Intake Total 1200 Output Total 250 Balance -250 1200 Intake: Oral 1200 Output: Urine 250 Other: # Voids 1 1 - Exam Extremities: Present: normal, edema (Trace). Absent: tenderness Abdomen: Present: normal appearance, soft (Positive bowel sounds 4). Absent: distention, tenderness Incision: Present: normal, dry, intact. Absent: erythematous Uterus: Present: normal, firm. Absent: tenderness - Labs Labs: Abnormal Lab Results - Last 24 Hours (Table) 08/14/18 Range/Units 07:38 WBC 17.4 H (3.8-10.6) k/uL RBC 3.29 L (3.80-5.40) m/uL Hgb 10.4 L (11.4-16.0) gm/dL Hct 31.2 L (34.0-46.0) % Neutrophils # 14.7 H (1.3-7.7) k/uL Assessment and Plan Assessment: Status post primary section postoperative day #1. Leukocytosis without fever (1) 41 weeks gestation of Current Visit: No Status: Acute Code(s): Z3A.41 - 41 WEEKS GESTATION OF SNOMED Code(s): 28692259 Plan: We'll start on oral antibiotics due to the leukocytosis but has not come down very much from yesterday. Continue with postoperative care.
[2018-08-14] MEDS: CLINDAMYCIN 150 MG CAP PO SCH ×3 (13:14→21:57)
[2018-08-14] MEDS: HYDROcodone/APAP 7.5-325MG 1 EACH TAB PO PRN (21:35)
[2018-08-15] MEDS: HYDROcodone/APAP 7.5-325MG 1 EACH TAB PO PRN ×3 (04:42→19:28)
[2018-08-15] MEDS: IBUPROFEN 600 MG TAB PO PRN ×3 (07:40→22:47)
--- NOTE | 2018-08-15 08:46 | P.PNOBGPC ---
Subjective - Subjective Principal diagnosis: Status post primary section postoperative day #3 Interval history: Patient is doing well. She is ambulating. She was very sore this morning but didn't get her pain medication through the night. She has done better alternating between the ibuprofen and the [place]. Lochia is decreasing. She has passed flatus and bowel movement. Baby is still in level I nursery. Patient reports: Reports appetite normal, Reports voiding normally, Reports pain well controlled, Reports ambulating normally : bottle feeding Objective - Vital Signs Latest vital signs: Vital Signs Temp Pulse Resp BP Pulse Ox /18/19 07:49 98.2 F 87 15 143/84 /17/ 23:43 98.4 F 72 18 131/76 98 /17/ 16:00 98.1 F 71 16 134/84 - Exam Extremities: Present: normal. Absent: tenderness Abdomen: Present: normal appearance, soft (Positive bowel sounds 4). Absent: distention, tenderness Incision: Present: normal, dry, intact. Absent: erythematous Uterus: Present: normal, firm. Absent: tenderness Assessment and Plan Assessment: Impression is status post primary section postoperative day #3. (1) 41 weeks gestation of Current Visit: No Status: Acute Code(s): Z3A.41 - 41 WEEKS GESTATION OF SNOMED Code(s): 31792978 Plan: Will continue postoperative and care. Anticipate discharge home tomorrow.
[2018-08-15] MEDS: SENNOSIDES-DOCUSATE SODIUM 1 EACH TAB PO SCH ×2 (10:18→20:24)
[2018-08-15] MEDS: CLINDAMYCIN 150 MG CAP PO SCH ×4 (10:22→22:48)
[2018-08-15] MEDS: HYDROcodone/APAP 5-325MG 1 EACH TAB PO PRN (13:15)
[2018-08-16] MEDS: HYDROcodone/APAP 5-325MG 1 EACH TAB PO PRN ×2 (02:18→15:24)
[2018-08-16] MEDS: IBUPROFEN 600 MG TAB PO PRN ×2 (05:01→19:04)
[2018-08-16] MEDS: SENNOSIDES-DOCUSATE SODIUM 1 EACH TAB PO SCH (08:00)
--- NOTE | 2018-08-16 08:55 | P.DS ---
Providers Date of admission: 08/12/18 06:19 Expected date of discharge: 08/16/18 Attending physician: Adelnie Ferrari Primary care physician: Stated None - Discharge Diagnosis(es) (1) 41 weeks gestation of Current Visit: No Status: Acute Hospital Course: This is a 23-year-old female 1 para 0 at 41 and one sevenths weeks who presented for induction of labor. She ended up delivering via section on 08/12/2018 due to failure to progress. She delivered a viable male infant with scores of 9 at 1 minute and 9 at 5 minutes and infant weight of 7 lbs. 4 oz. Nuchal cord 2 was noted. Her postoperative course was initially complicated by pain control. She was placed on [place] and ibuprofen alternating and this has improved her pain. She has passed flatus and bowel movement. Her baby has been in level I nursery for observation for potential withdrawal. She is bottle feeding. Lochia is decreasing. Vital signs are stable. Abdomen is soft with positive bowel sounds 4. Incision is clean dry and intact. Alexys are in place. Extremities show negative Homans. Impression is status post primary section postoperative day #4. Plan is to discharge home today. Routine postoperative and instructions are given. She is advised to follow up in the office in 1 week for a postoperative check and in 6 weeks for check. She be given a prescription for ibuprofen and [place]. She has signed to start taking opioid consent form. Maps is checked. She is advised to call the office if she has any further questions or concerns prior to her appointment time. Procedures: Oxytocin induction of labor Primary low transverse section on 08/12/2018 Patient Condition at Discharge: Stable Plan - Discharge Summary New Discharge Prescriptions: New Clindamycin [Cleocin] 300 mg PO QID #20 cap HYDROcodone/APAP 7.5-325MG [K[place] 7.5-325] 1 each PO Q6H PRN #28 tab PRN Reason: Severe Pain Ibuprofen [Motrin] 600 mg PO Q6HR PRN #60 tab PRN Reason: Mild Pain Or Fever >= 100.5 Continue Pnv,Calcium 72/Iron/Folic Acid [ Plus Tablet] 1 tab PO ONCE Discharge Medication List Pnv,Calcium 72/Iron/Folic Acid [ Plus Tablet] 1 tab PO ONCE 08/11/18 [ History] Clindamycin [Cleocin] 300 mg PO QID #20 cap 08/16/18 [Rx] HYDROcodone/APAP 7.5-325MG [[place] 7.5-325] 1 each PO Q6H PRN #28 tab 08/16/18 [ Rx] Ibuprofen [Motrin] 600 mg PO Q6HR PRN #60 tab 08/16/18 [Rx] Follow up Appointment(s)/Referral(s): Adeline Ferrari DO [Doctor of Osteopathic Medicine] - 1 Week Activity/Diet/Wound Care/Special Instructions: Instructions 1. Do not begin any exercise program for 3 weeks. 2. Do not resume sexual relations for 3 weeks or longer if uncomfortable. 3. You may take tub baths or showers at any time. 4. You may use tampons if desired after 3 weeks. 5. Keep the area of episiotomy (stitches) clean and dry. 6. If you are not nursing, wear a good fitting, supportive bra during the day and limit fluid intake for at least 1 week to prevent breast engorgement. 7. Call the office, [phone], within the next week to make appointment for your 6 week checkup if it has not already been made. 8. Report any of the following occurrences to the doctor promptly: a. Heavy, excessive bleeding b. Chills, fever c. Burning or frequency of urination d. Pain or redness and breasts if nursing e. Increasing pain or swelling in episiotomy (stitches). In addition to the above instructions, the following additional should be followed: 1. No heavy lifting or straining (exercising) until after 6 week checkup. 2. Keep abdominal incision clean and dry: You may wear a dressing if more comfortable. 3. Make office appointment for 10 days after going home or as instructed by her doctor. Discharge Disposition: HOME SELF-CARE
[2018-08-16] MEDS: HYDROcodone/APAP 7.5-325MG 1 EACH TAB PO PRN (09:13)
[2018-08-16] MEDS: CLINDAMYCIN 150 MG CAP PO SCH ×3 (09:14→19:03)
[2018-08-16 17:34] VITALS: BP 136/82; PULSE 60; RESP 18; TEMP 98.1
== END 2018-08-16 18:50 | disposition home or self-care (01) | DRG 788 ==
LOC: 4FBP 06:19
PROVIDERS: ADMIT Obstetrics & Gynecology; ATTEND Obstetrics & Gynecology
PROC: 10D00Z1 Extraction of Products of Conception, Low, Open Approach (ICD-10-PCS; principal; 2018-08-12 06:00)
PROC: 10907ZC Drainage of Amniotic Fluid, Therapeutic from Products of Conception, Via Natural or Artificial Opening (ICD-10-PCS; principal; 2018-08-12 06:00)
PROC: 00HU33Z Insertion of Infusion Device into Spinal Canal, Percutaneous Approach (ICD-10-PCS; principal; 2018-08-12 06:00)
PROC: 3E0R3NZ Introduction of Analgesics, Hypnotics, Sedatives into Spinal Canal, Percutaneous Approach (ICD-10-PCS; principal; 2018-08-12 06:00)
PROC: 3E033VJ Introduction of Other Hormone into Peripheral Vein, Percutaneous Approach (ICD-10-PCS; principal; 2018-08-12 06:00)
DX: O62.2 Other uterine inertia (principal); O48.0 Post-term pregnancy; F17.200 Nicotine dependence, unspecified, uncomplicated; O99.334 Smoking (tobacco) complicating childbirth; Z37.0 Single live birth; Z3A.41 41 weeks gestation of pregnancy; Z88.1 Allergy status to other antibiotic agents; O69.81X0 Labor and delivery complicated by cord around neck, without compression, not applicable or unspecified
CPT/HCPCS: 85025; 86850; 86900; 86901; 88307; 90686; 90715